=== PATIENT | male | born 2000 | race Two or more races ===

== ENCOUNTER 2025-01-22 09:48 | Outpatient (OUT) | payer OTHER, SELFPAY ==
[2025-01-22 11:06] LABS: Estimated Average Glucose 91 mg/dL; Glycohemoglobin A1C 4.8 % (4.5-6.2)
[2025-01-22 11:12] LABS: Basophils Absolute Auto 0.1 10^3/uL (0.0-0.1); Basophils Percent Auto 1.3 % (0.2-2.0); Eosinophils Absolute Auto 0.2 10^3/uL (0.0-0.7); Eosinophils Percent Auto 3.1 % (0.9-7.0); Hematocrit 44.4 % (42.0-54.0); Hemoglobin 15.3 g/dL (14.0-18.0); Immature Granulocytes Abs Auto 0.02 10^3/uL (0.00-0.03); Immature Granulocytes Pct Auto 0.4 % (0.0-0.5); Lymphocytes Percent Auto 36.2 % (20.5-60.0); Mean Corpuscular HGB Conc 34.5 g/dL (29.9-35.2); Mean Corpuscular Hemoglobin 30.1 pg (25.9-34.0); Mean Corpuscular Volume 87.2 fL (80.0-94.0); Mean Platelet Volume 10.8 fL (9.5-13.5); Monocytes Absolute Auto 0.4 10^3/uL (0.3-0.8); Monocytes Percent Auto 6.5 % (1.7-12.0); Neutrophils Absolute Auto 2.9 10^3/uL (1.4-6.5); Neutrophils Percent Auto 52.5 % (43.0-75.0); Platelet Count 195 10^3/uL (150-450); Red Blood Count 5.09 10^6/uL (4.70-6.10); Red Cell Distribution Width 11.9 % (11.0-15.0); White Blood Count 5.6 10^3/uL (4.0-11.0)
[2025-01-22 11:30] LABS: Alanine Aminotransferase 27 U/L (16-63); Albumin Globulin Ratio 1.6; Albumin Level 4.5 g/dL (3.4-5.0); Alkaline Phosphatase 84 U/L (46-116); Amylase 52 U/L (25-115); Anion Gap 13.7; Aspartate Amino Transferase 12 U/L (15-37); BUN Creatinine Ratio 13.1; Bilirubin Total 0.7 mg/dL (0.2-1.0); Calcium 9.3 mg/dL (8.5-10.1); Carbon Dioxide 28.4 mmol/L (21.0-32.0); Chloride 105 mmol/L (98-107); Chol HDL Ratio 3.6; Cholesterol 157 mg/dL (<=200); Estimated GFR (African America >60 (>=60 mL/min/1.73m^2); Estimated GFR (Non-African Ame >60 (>=60 mL/min/1.73m^2); Globulin 2.9 g/dL; Glucose 100 mg/dL (74-106); HDL Cholesterol 44 mg/dL (40-60); LDL Cholesterol Calculated 95.8 mg/dL; Potassium 4.1 mmol/L (3.5-5.1); Sodium 143 mmol/L (136-145); Thyroid Stimulating Hormone 1.722 uIU/mL (0.358-3.740); Total Protein 7.4 g/dL (6.4-8.2); Triglycerides 86 mg/dL (<=150); VLDL CHOLESTEROL 17.2 mg/dL
[2025-01-22 11:35] LABS: C Reactive Protein <0.50 mg/dL (<=0.50)
[2025-01-22 11:51] LABS: Prostate Specific Antigen Scrn 0.96 ng/mL (<=4.00)
[2025-01-22 14:23] LABS: Erythrocyte Sedimentation Rate <1 mm/hr (<=15)
[2025-01-23 05:09] LABS: CA 19-9 <2 U/mL (0-35); CEA 3.3 ng/mL (0.0-4.7); Insulin 12.8 uIU/mL (2.6-24.9)
[2025-01-23 17:12] LABS: Deamidated Gliadin Abs, IgA 3 units (0-19); Deamidated Gliadin Abs, IgG 2 units (0-19); Endomysial Antibody IgA Negative (Negative); Immunoglobulin A, Qn, Serum 62 mg/dL (90-386); t-Transglutaminase (tTG) IgA <2 U/mL (0-3); t-Transglutaminase (tTG) IgG 5 U/mL (0-5)
== END 2025-01-22 09:49 | disposition home or self-care (01) ==
LOC: LAB 09:53
PROVIDERS: PCP Family Medicine; Visit Provider Family Medicine
DX: R63.4 Abnormal weight loss (principal); R73.09 Other abnormal glucose; Z12.5 Encounter for screening for malignant neoplasm of prostate
CPT/HCPCS: 36415; 80053; 80061; 82150; 82378; 82784; 83036; 83525; 84436; 84443; 84481; 85025; 85652; 86140; 86231; 86258; 86301; 86364; G0103

== ENCOUNTER 2025-01-27 09:46 | Outpatient (OUT) | payer OTHER, SELFPAY ==
--- NOTE | 2025-01-27 09:48 | US_ITS ---
The [address] [address] Patient Name: KELL TENA MRN: [id number] date: 2000 Sex: M Assigned Patient Location: Current Patient Location: Accession/Order Number: [id number] Exam Date: 01/28/2025 20:26 Report Date: 01/28/2025 20:27 At the request of: KISHAN BARRIENTOS MD Procedure: US scrotum doppler Scrotal ultrasound. Reason for exam: Scrotal varices. COMPARISON: None. TECHNIQUE: Grayscale and color Doppler images of the scrotal contents were obtained. Additional arterial and venous Doppler waveforms of both testicles were also obtained. FINDINGS: The right testicle measures 4.0 x 2.9 x 2.6 cm. No evidence of testicular mass or microlithiasis. Normal arterial and venous Doppler waveforms. No hydrocele. A 2 cm epididymal cyst is present. The left testicle measures 4.0 x 2.8 x 2.0 cm. No evidence of testicular mass or microlithiasis. Normal arterial and venous Doppler waveforms. No hydrocele. Epididymis appears unremarkable. US/US scrotum doppler IMPRESSION: 2 cm epididymal cyst. Otherwise unremarkable study. Impression dictated by: Hemant Sandhu Jr., D.O. 01/28/2025 8:27 PM Dictation Location: [place] [address] Electronically authenticated by: [id number] Y Date: 01/28/2025 20:27
== END 2025-01-27 09:47 | disposition home or self-care (01) ==
LOC: US 09:46
PROVIDERS: PCP Family Medicine; Visit Provider Family Medicine
DX: R63.4 Abnormal weight loss (principal); I86.1 Scrotal varices; N50.3 Cyst of epididymis
CPT/HCPCS: 76870; 93976